=== PATIENT | male | born 1985 | race Caucasian/White ===

== ENCOUNTER 2022-12-10 22:03 | Emergency (ER) | payer OTHER, BC ==
[2022-12-10] MEDS: LORazepam 2 MG/ML SDV IM ONE (22:15)
[2022-12-10] MEDS: Sodium Chloride 0.9% 1,000 ML IV ONE ×2 (22:25→23:20)
[2022-12-10 22:58] LABS: BASOPHILS PERCENT AUTO 0.4 % (0.2-1.2); EOSINOPHILS ABSOLUTE AUTO 0.2 x10^3/uL (0.0-0.5); EOSINOPHILS PERCENT AUTO 1.5 % (0.0-4.0); HEMATOCRIT 44.1 % (40.0-52.0); HEMOGLOBIN 14.4 g/dL (14.0-18.0); IMMATURE GRAN ABSOLUTE AUTO 0.03 x10^3/uL (0.00-0.07); LYMPHOCYTES PERCENT AUTO 35.1 % (25.0-50.0); MEAN CORPUSCULAR HGB CONC 32.7 g/dL (32.0-36.0); MEAN CORPUSCULAR VOLUME 79.7 fL (78.0-93.0); MONOCYTES ABSOLUTE AUTO 0.9 x10^3/uL (0.0-0.8); MONOCYTES PERCENT AUTO 8.1 % (2.0-11.0); NEUTROPHILS ABSOLUTE AUTO 6.2 x10^3/uL (1.8-7.7); NEUTROPHILS PERCENT AUTO 54.6 % (50.0-80.0); PLATELET COUNT,PLT 296 x10^3/uL (130-400); RED BLOOD CELL COUNT 5.53 x10^6/uL (4.5-6.0); WHITE BLOOD CELL COUNT,WBC 11.4 x10^3/uL (4.0-10.0)
[2022-12-10 23:02] LABS: PROTHROMBIN TIME 10.5 SEC (9.5-12.2)
[2022-12-10 23:11] LABS: A/G RATIO 1.41; ALANINE AMINOTRANSFERASE,ALT 24 U/L (16-63); ALBUMIN 4.5 g/dL (3.4-5.0); ALKALINE PHOSPHATASE 97 U/L (46-116); ASPARTATE AMNIOTRANSFERASE,AST 26 U/L (15-37); BILIRUBIN TOTAL 0.3 mg/dL (0.2-1.0); BLOOD UREA NITROGEN,BUN 20 mg/dL (7-18); CALCIUM 9.4 mg/dL (8.5-10.1); CARBON DIOXIDE,CO2 22 mmol/L (21-32); CHLORIDE,CL 109 mmol/L (98-107); CREATININE 1.3 mg/dL (0.70-1.30); GLUCOSE RANDOM 106 mg/dL (70-99); POTASSIUM,K 3.5 mmol/L (3.5-5.1); PROTEIN TOTAL,TP 7.7 g/dL (6.4-8.2); SODIUM,NA 148 mmol/L (136-145)
[2022-12-10 23:12] LABS: ANION GAP 20.5 mmol/L (5-15); ESTIMATED GFR 72 mL/min (>=60); ETHANOL BLOOD MEDICAL < 3 mg/dL (0-3); LACTIC ACID 6.8 mmol/L (0.4-2.0)
[2022-12-10 23:18] LABS: ACETAMINOPHEN 0 ug/ml (10-30)
[2022-12-10 23:41] LABS: BASE EXCESS ARTERIAL,POC -3 mmol/L ((-2)-3); HCO3 ARTERIAL,POC 22.7 mmol/L (21-28); O2 SATURATION ARTERIAL,POC 91.2 % (94-98); PCO2 ARTERIAL,POC 40 mmHg (35-48); PH ARTERIAL,POC 7.36 pH (7.35-7.45); PO2 ARTERIAL,POC 64 mmHg (83-108); TCO2 ARTERIAL,POC 22.8 mmol/L (22-29)
[2022-12-11 08:07] LABS: APPEARANCE,URINE CLEAR (CLEAR); BILIRUBIN,URINE NEGATIVE (NEGATIVE); COLOR,URINE YELLOW (YELLOW); GLUCOSE,URINE NEGATIVE (NEGATIVE); KETONES,URINE 15 mg/dL (NEGATIVE); LEUKOCYTE ESTERASE,URINE NEGATIVE (NEGATIVE); NITRITE,URINE NEGATIVE (NEGATIVE); OCCULT BLOOD,URINE NEGATIVE (NEGATIVE); PROTEIN,URINE NEGATIVE (NEGATIVE); UROBILINOGEN,URINE 0.2 EU/dL (0.2)
[2022-12-11 08:13] LABS: AMPHETAMINES SCREEN, URINE POSITIVE (NEGATIVE); BARBITURATE SCREEN,URINE NEGATIVE (NEGATIVE)
[2022-12-11 08:14] LABS: BENZODIAZEPINES SCREEN,URINE POSITIVE (NEGATIVE); BUPRENORPHINE SCREEN,URINE NEGATIVE (NEGATIVE); COCAINE METABOLITES,URINE NEGATIVE (NEGATIVE); METHADONE SCREEN, URINE NEGATIVE (NEGATIVE); METHAMPHETAMINE SCREEN, URINE NEGATIVE (NEGATIVE); OXYCODONE SCREEN,URINE NEGATIVE (NEGATIVE); PCP SCREEN,URINE NEGATIVE (NEGATIVE); THC SCREEN,URINE 50 NG/ML POSITIVE (NEGATIVE)
== END 2022-12-11 03:15 ==
LOC: VM.ED 22:03
DX: F29 Unspecified psychosis not due to a substance or known physiological condition (principal); F43.9 Reaction to severe stress, unspecified
CPT/HCPCS: 36415; 36600; 80053; 80143; 80179; 80305-QW; 80307; 81003; 82550; 82803; 83605; 84484; 85025; 85610; 96360; 96361; 96372; 99285-25; J2060; J7030